=== PATIENT | male | born 1995 | race Caucasian/White ===

== ENCOUNTER 2017-07-20 14:43 | Emergency (ER) | payer OTHER ==
[2017-07-20 14:44] VITALS: BP 176/97
== END 2017-07-20 15:42 | disposition home or self-care (01) ==
LOC: ED 14:43
DX: S29.012A Strain of muscle and tendon of back wall of thorax, initial encounter (principal); X58.XXXA Exposure to other specified factors, initial encounter; Y93.89 Activity, other specified; Y92.89 Other specified places as the place of occurrence of the external cause; Y99.8 Other external cause status

== ENCOUNTER 2019-01-18 18:38 | Emergency (ER) | payer OTHER ==
[~2019-01-18] VITALS: Ht 177.8 cm; Wt 127.9 kg
[2019-01-18 19:51] VITALS: BP 147/86
== END 2019-01-18 19:51 | disposition home or self-care (01) ==
LOC: ED 18:38
DX: H10.89 Other conjunctivitis (principal)

== ENCOUNTER 2019-01-31 23:56 | Emergency (ER) | payer OTHER ==
[~2019-01-31] VITALS: Ht 177.8 cm; Wt 129.7 kg
[2019-02-01 00:11] VITALS: BP 136/72; Ht 177.8 cm; Wt 129.7 kg
== END 2019-02-01 02:05 | disposition home or self-care (01) ==
LOC: ED 23:56
DX: H10.33 Unspecified acute conjunctivitis, bilateral (principal)

== ENCOUNTER 2020-02-16 02:52 | Emergency (ER) | payer OTHER ==
[~2020-02-16] VITALS: Ht 177.8 cm; Wt 113.4 kg
[2020-02-16 03:04] VITALS: Ht 177.8 cm; Wt 113.4 kg
[2020-02-16 06:42] LABS: BASOPHIL % 0.1 % (0-2); PLATELET COUNT 178 x10^3mcL (130-400); RED CELL DISTRIBUTION WIDTH 12.9 % (11.5-14.5)
[2020-02-16 06:54] LABS: CALCIUM 9.6 mg/dL (8.5-10.1); CHLORIDE SERUM 99 mmol/L (98-107); CREATININE SERUM 1.1 mg/dL (0.7-1.3); GFR1 > 60 mL/min; GLUCOSE SERUM 150 mg/dL (74-106); POTASSIUM SERUM 4.5 mmol/L (3.5-5.1); SODIUM SERUM 137 mmol/L (136-145)
[2020-02-16 06:58] LABS: ALKALINE PHOSPHATASE 190 U/L (46-116); ALT/SGPT 133 U/L (16-63); AST/SGOT 218 U/L (15-37); BILIRUBIN TOTAL 2.08 mg/dL (0.20-1.00); LIPASE 46 IU/L (73-393); TOTAL PROTEIN, SERUM 8.1 g/dL (6.4-8.2)
[2020-02-16 08:10] VITALS: BP 136/85
== END 2020-02-16 08:10 | disposition home or self-care (01) ==
LOC: ED 02:52
PROVIDERS: Emergency Medicine
DX: K29.70 Gastritis, unspecified, without bleeding (principal); R74.0 Nonspecific elevation of levels of transaminase and lactic acid dehydrogenase [LDH]
CPT/HCPCS: J2270; Q0162